=== PATIENT | female | born 1955 | race Caucasian/White ===

== ENCOUNTER 2018-07-21 07:12 | Outpatient (CLI) | payer OTHER ==
[~2018-07-21 07:12] MED LIST: AMBIEN10 MG PO; CIPRO750 MG PO; CLARITIN10 M1 PO; CLONAZEPAM0.125 MG/T PO; CLONAZEPAM1 MG/TAB; CRESTOR10 MG PO; Colace 100MG PO; DALMANE15 MG PO; FLONASE16 G1 NS; FORTEO; KOMBIGLYZE XR1 EAC1 PO; LAMICTAL200 MG PO; LYRICA150 MG PO; LYRICA50 MG PO; MECLOFENAMATE100 MG PO; METFORMIN HYDRO25 GM MC; NEURONTIN PO; OMEPRAZOLE20 MG PO; PERCOCET 5/3251 TAB PO; SOMA PO; SOMA250 MG PO; ZANTAC150 MG PO
== END 2018-07-21 07:14 | disposition home or self-care (01) ==
LOC: SONOGRAMA 07:12
DX: E04.1 Nontoxic single thyroid nodule (principal)